=== PATIENT | female | born 1975 | race Two or more races ===

== ENCOUNTER 2022-04-18 17:25 | Inpatient (IN) | payer BC ==
[~2022-04-18] VITALS: Ht 154.9 cm; Wt 95.3 kg
[2022-04-18 18:30] LABS: CLARITY URINE CLEAR (CLEAR); COLOR URINE YELLOW (YELLOW); KETONES URINE NEGATIVE (NEGATIVE); LEUKOCYTE ESTERASE URINE NEGATIVE (NEGATIVE); NITRITE URINE NEGATIVE (NEGATIVE); OCCULT BLOOD URINE NEGATIVE (NEGATIVE); PROTEIN URINE NEGATIVE (NEGATIVE); SPECIFIC GRAVITY URINE 1.006 (1.005-1.030); UROBILINOGEN URINE 0.2 E.U./dL (0.2-1.0)
[2022-04-18 18:35] LABS: CHLORIDE 107 mEq/L (98-107)
[2022-04-18 18:36] LABS: HCG SCREEN NEGATIVE; PROTHROMBIN TIME 10.3 sec (9.6-11.0)
[2022-04-18 18:44] LABS: *AMPHETAMINES SCREEN URINE NEGATIVE (NEGATIVE); *BARBITURATES SCREEN URINE NEGATIVE (NEGATIVE); *BENZODIAZEPINES SCREEN URINE NEGATIVE (NEGATIVE); *COCAINE SCREEN URINE NEGATIVE (NEGATIVE); CANNABINOID URINE SCREEN NEGATIVE (NEGATIVE); ETHANOL BLOOD < 10 mg/dL; METHADONE URINE SCREEN NEGATIVE (NEGATIVE); OPIATES URINE SCREEN NEGATIVE (NEGATIVE); PHENCYCLIDINE URINE SCREEN NEGATIVE (NEGATIVE)
[2022-04-18 18:51] LABS: BASOPHILS % 0.3 % (0.0-2.0); EOSINOPHILS % 1.7 % (0.0-5.0); HEMATOCRIT. 40.5 % (36.0-48.0); HEMOGLOBIN. 13.6 g/dL (12.0-16.0); LYMPHOCYTES % 39.3 % (20.0-50.0); MEAN CORPUSCULAR HEMOGLOBIN 29.7 pg (28.0-32.0); MEAN CORPUSCULAR VOLUME 88.4 fL (81.0-99.0); MEAN PLATELET VOLUME 9.7 fl (7.4-10.4); MONOCYTES % 7.3 % (2.0-8.0); NEUTROPHILS % 51.4 % (40.0-76.0); PLATELET 216 x1000/uL (130-400); RED BLOOD CELL COUNT 4.58 mill/uL (4.2-5.4); RED CELL DISTRIBUTION WIDTH 13.2 % (11.6-14.6)
[2022-04-19] MEDS ORDERED: ACETAMINOPHEN 325MG TABLET PO PRN (00:15)
[2022-04-19] MEDS ORDERED: DOCUSATE SODIUM 100MG CAPSULE PO PRN (00:15)
[2022-04-19] MEDS ORDERED: CLONIDINE 0.1MG TABLET PO PRN (00:15)
[2022-04-19 00:30] VITALS: BP 133/58
[2022-04-19] MEDS ORDERED: ATOR20TA65 PO (02:38)
[2022-04-19] MEDS ORDERED: LISI20TA31 PO (02:38)
[2022-04-19] MEDS ORDERED: METF-873 PO (02:38)
[2022-04-19] MEDS ORDERED: ASPI-1160 PO (02:38)
[2022-04-19 04:00] VITALS: BP 114/61
[2022-04-19] MEDS ORDERED: DEXTROSE 50% WATER 50ML SYRINGE IV PRN (04:00)
[2022-04-19] MEDS: BLOOD SUGAR DIAGNOSTIC STRIP TEST SCH ×2 (07:40→12:40)
[2022-04-19] MEDS ORDERED: PANTOPRAZOLE 40MG DR TABLET PO SCH (07:40)
[2022-04-19 08:00] VITALS: BP 122/64
[2022-04-19] MEDS ORDERED: ASPIRIN 81MG TABLET PO SCH (09:00)
[2022-04-19] MEDS ORDERED: ASPIRIN 325MG EC TABLET PO SCH (09:00)
[2022-04-19] MEDS ORDERED: ENOXAPARIN 40MG/0.4ML SYR SUBCUT SCH (09:00)
[2022-04-19] MEDS ORDERED: LISINOPRIL 20MG TABLET PO SCH (09:00)
[2022-04-19 09:10] LABS: BASOPHILS % 0.4 % (0.0-2.0); EOSINOPHILS % 1.9 % (0.0-5.0); HEMATOCRIT. 39.7 % (36.0-48.0); HEMOGLOBIN. 13.3 g/dL (12.0-16.0); LYMPHOCYTES % 41.4 % (20.0-50.0); MEAN CORPUSCULAR HEMOGLOBIN 29.5 pg (28.0-32.0); MEAN CORPUSCULAR VOLUME 87.8 fL (81.0-99.0); MEAN PLATELET VOLUME 8.9 fl (7.4-10.4); MONOCYTES % 6.9 % (2.0-8.0); NEUTROPHILS % 49.4 % (40.0-76.0); PLATELET 213 x1000/uL (130-400); RED BLOOD CELL COUNT 4.52 mill/uL (4.2-5.4); RED CELL DISTRIBUTION WIDTH 12.8 % (11.6-14.6)
[2022-04-19] MEDS: INSULIN LISPRO 100 UNITS/ML SUBCUT SCH ×2 (09:13→15:15)
[2022-04-19 09:28] LABS: CHLORIDE 107 mEq/L (98-107)
[2022-04-19 09:43] LABS: HDL CHOLESTEROL 30 mg/dL (40-59); LDL CHOLESTEROL 58 mg/dL (5-100)
[2022-04-19] MEDS ORDERED: ATORVASTATIN CALCIUM 40MG TABLET PO SCH (21:00)
== END 2022-04-19 17:40 | disposition left against medical advice (07) | DRG 179 ==
LOC: ER 17:25 → 7WST 20:33 → EDBEDREQTM 20:37 → EDBEDREQ 20:37 → ENRESERV 21:28 → CANRESERV 21:28 → ENRESERV 23:48 → 7EST 04-19 11:40
PROVIDERS: ADMIT Internal Medicine; ATTEND Internal Medicine
DX: U07.1 COVID-19 (principal); E66.9 Obesity, unspecified; E78.00 Pure hypercholesterolemia, unspecified; E78.5 Hyperlipidemia, unspecified; E11.9 Type 2 diabetes mellitus without complications; I10 Essential (primary) hypertension; Z86.73 Personal history of transient ischemic attack (TIA), and cerebral infarction without residual deficits; Z86.16 Personal history of COVID-19; Z79.84 Long term (current) use of oral hypoglycemic drugs; Z79.82 Long term (current) use of aspirin; Z68.39 Body mass index [BMI] 39.0-39.9, adult
CPT/HCPCS: 36415; 71045; 80048; 80053; 80061; 80305; 80320; 81003; 82962; 83036; 83880; 84439; 84443; 84484; 84703; 85025; 87426; 93005; 97162; 99285; C9803; J1650; J1815; G0480